=== PATIENT | female | born 1970 | race Caucasian/White ===

== ENCOUNTER 2016-11-29 16:25 | Inpatient (IN) | payer OTHER ==
[~2016-11-29] VITALS: Ht 170.2 cm; Wt 81.2 kg
[2016-11-29] VITALS (10 sets, daily range): BP systolic 110–155
[~2016-11-29 16:25] MED LIST: MONT10TA22 PO; PRO20 PO; PROAIR
[2016-11-29] MEDS ORDERED: NACL 0.9% 1,000 ML IV ONE ×2 (16:30→18:15)
[2016-11-29] MEDS ORDERED: DIAZEPAM 10 MG/2 ML DISP.SYRIN IVP ONE (16:30)
[2016-11-29] MEDS ORDERED: LORazepam 2 MG/ML VIAL (FOR ER USE) IVP ONE ×2 (16:30→17:30)
[2016-11-29] MEDS ORDERED: DIAZEPAM 10 MG/2 ML DISP.SYRIN ONE (16:39)
[2016-11-29 16:44] LABS: BASOPHILS # (AUTO) 0.1 K/uL (0.0-0.2); BASOPHILS % (AUTO) 0.7 % (0.0-2.0); EOSINOPHILS # (AUTO) 0.3 K/uL (0.0-0.4); HEMATOCRIT 38.6 % (44-61); HEMOGLOBIN 13.2 g/dL (13.0-20.0); LYMPHOCYTES # (AUTO) 1.8 K/uL (1.0-5.5); LYMPHOCYTES % (AUTO) 23.4 % (15.5-46.5); MEAN CORPUSCULAR HEMOGLOBIN 31 pg (27-31); MEAN CORPUSCULAR HGB CONC 34 % (32-36); MEAN CORPUSCULAR VOLUME 90 fL (106-124); MONOCYTES # (AUTO) 0.5 K/uL (0.0-1.0); MONOCYTES % (AUTO) 6.6 % (1.7-9.3); NEUTROPHILS % (AUTO) 65.3 % (40.0-70.0); PLATELET COUNT (AUTO) 276 K/uL (130-430); RED CELL DISTRIBUTION WIDTH 12.2 % (9.0-15.0); WHITE BLOOD COUNT (AUTO) 7.7 K/uL (9.0-30.0)
[2016-11-29 16:52] LABS: ANION GAP 6 (5-15); CALCIUM 8.5 mg/dL (8.4-11.0); CHLORIDE 105 mmol/L (98-107); CREATININE 0.95 mg/dL (0.55-1.30); GLUCOSE 108 mg/dL (70-105); POTASSIUM 3.5 mmol/L (3.5-5.1); SODIUM SERUM 137 mmol/L (136-145); UREA NITROGEN, BLOOD 12 mg/dL (8-21)
[2016-11-29 16:54] LABS: PROTHROMBIN TIME 10.7 SECS (9.5-12.5)
[2016-11-29 16:56] LABS: ALANINE AMINOTRANSFERASE 15 U/L (12-78); ALBUMIN 3.5 g/dL (2.8-4.4); ASPARTATE AMINOTRANSFERASE 17 U/L (10-37); TOTAL BILIRUBIN 0.5 mg/dL (0.0-1.0); TOTAL PROTEIN, SERUM 6.8 g/dL (6.4-8.3)
[2016-11-29 16:57] LABS: ALCOHOL, BLOOD < 3 mg/dL (<10)
[2016-11-29] MEDS ORDERED: PHENYTOIN SODIUM INJ 1,000 MG in NS 100 ML IV ONE (17:00)
[2016-11-29] MEDS ORDERED: PHENYTOIN SODIUM 250 MG/5 ML INJ. VIAL IV ONE (17:04)
[2016-11-29 17:15] LABS: SALICYLATE 1 mg/dL (3-30)
[2016-11-29] MEDS ORDERED: PROPOFOL DRIP 100 ML IV ONE (17:15)
[2016-11-29 17:20] LABS: ACETAMINOPHEN 2 ug/mL (1-30)
[2016-11-29] MEDS ORDERED: LORazepam 2 MG/ML VIAL (FOR ER USE) ONE (17:27)
[2016-11-29 18:24] LABS: BILIRUBIN,URINE NEGATIVE (NEGATIVE); BLOOD, URINE NEGATIVE (NEGATIVE); CLARITY/URINE CLEAR (CLEAR); COLOR,URINE YELLOW (YELLOW); GLUCOSE,URINE NEGATIVE (NEGATIVE); KETONES,URINE NEGATIVE (NEGATIVE); LEUKOCYTE ESTERASE ,URINE NEGATIVE (NEGATIVE); NITRITE, URINE NEGATIVE (NEGATIVE); PH,URINE 5.5 (5.0-8.0); PROTEIN URINE NEGATIVE (NEGATIVE); UROBILINOGEN,URINE 0.2 (0.2-1.0)
[2016-11-29 18:35] LABS: BARBITURATE, URINE NEGATIVE (NEG <=200); BENZODIAZEPINE, URINE POSITIVE (NEG <=150); CANNABINOID, URINE NEGATIVE (NEG <=50); COCAINE, URINE NEGATIVE (NEG <=150); METHAMPHETAMINES SCREEN,URINE NEGATIVE (NEG <=500); OPIATE, URINE NEGATIVE (NEG <=100); PHENCYCLIDINE SCREEN,URINE NEGATIVE (NEG <=25); UR TRICYCLIC ANTIDEPRESSANTS NEGATIVE (NEG <=300); URINE AMPHETAMINE NEGATIVE (NEG <=500); URINE METHADONE NEGATIVE (NEG <=200); URINE OXYCODONE SCREEN NEGATIVE (NEG <=100); URINE PROPOXYPHENE SCREEN NEGATIVE (NEG <=300)
[2016-11-29] MEDS ORDERED: ETOMIDATE 20 MG/ 10 ML VIAL (AMIDATE) IVP ONE (19:27)
[2016-11-29] MEDS ORDERED: VECURONIUM BROMIDE 10 MG/VIAL (NORCURON) IV ONE (19:27)
[2016-11-29 19:39] LABS: ABG TOTAL HEMOGLOBIN 14.3 G/dL (12.0-18.0); BLOOD GAS BASE EXCESS -3.5 mmol/L (-3.0-3.0); BLOOD GAS PH 7.319 (7.350-7.450); BLOOD O2Hb% 99.4 % (94.0-97.0)
[2016-11-29 19:40] LABS: BLOOD GAS HHB 0.6 % (0.0-6.0)
[2016-11-29 20:41] LABS: PHENYTOIN (DILANTIN) 10.6 ug/mL (10.0-20.0)
[2016-11-29] MEDS: LORazepam 2 MG/ML VIAL IVP PRN (21:58)
[2016-11-29 22:56] LABS: PHENOBARBITAL 1.1 ug/mL (15.0-40.0)
[2016-11-30] VITALS (24 sets, daily range): BP systolic 100–160
[2016-11-30 08:13] LABS: BLOOD GAS PH 7.418 (7.350-7.450)
[2016-11-30 08:14] LABS: ABG TOTAL HEMOGLOBIN 14.4 G/dL (12.0-18.0); BLOOD GAS BASE EXCESS -1.8 mmol/L (-3.0-3.0); BLOOD GAS COHb% 0.3 % (0.5-1.5); BLOOD GAS HHB 3.2 % (0.0-6.0)
[2016-11-30] MEDS: NACL 0.9% 1,000 ML IV SCH ×2 (09:45→22:44)
[2016-11-30] MEDS ORDERED: ACYC400T PO (09:49)
[2016-11-30] MEDS ORDERED: FLUO40CA49 PO (09:49)
[2016-11-30] MEDS ORDERED: MONT10TA22 PO (09:49)
[2016-11-30] MEDS ORDERED: PERC10 GT (09:49)
[2016-11-30] MEDS ORDERED: HYDR-1189 PO (09:49)
[2016-11-30] MEDS ORDERED: DOCUSATE SODIUM 100 MG CAPSULE PO SCH (16:30)
[2016-11-30] MEDS ORDERED: IPRATROPIUM/ALBUTEROL SULFATE 3 ML AMPUL.NEB INH PRN (16:45)
[2016-11-30] MEDS: FIORCET PO PRN (17:59)
[2016-11-30] MEDS: IPRATROPIUM/ALBUTEROL SULFATE 3 ML AMPUL.NEB INH SCH (19:03)
[2016-11-30] MEDS ORDERED: MORPHINE 2 MG/ML INJ. SYRINGE IVP PRN (20:15)
[2016-11-30] MEDS: DOCUSATE SODIUM 100 MG CAPSULE PO SCH (20:30)
[2016-11-30] MEDS: PHENobarbital 30 MG TABLET PO SCH (20:30)
[2016-11-30] MEDS: PHENYTOIN 100 MG CAPSULE PO SCH (20:31)
[2016-11-30] MEDS: HYDROcodone/ACETAMIN 10-325 MG TAB PO PRN (20:32)
[2016-12-01] VITALS (21 sets, daily range): BP systolic 110–155
[2016-12-01] MEDS: FIORCET PO PRN ×2 (05:55→15:12)
[2016-12-01] MEDS: IPRATROPIUM/ALBUTEROL SULFATE 3 ML AMPUL.NEB INH SCH ×3 (06:16→12:00)
[2016-12-01] MEDS: LORazepam 2 MG/ML VIAL IVP PRN (06:50)
[2016-12-01] MEDS ORDERED: PANTOPRAZOLE SODIUM 40 MG/VIAL (PROTONIX) IVP SCH (09:00)
[2016-12-01] MEDS ORDERED: MONTELUKAST 10 MG TABLET PO SCH (09:00)
[2016-12-01] MEDS: DOCUSATE SODIUM 100 MG CAPSULE PO SCH (09:48)
[2016-12-01] MEDS: PHENYTOIN 100 MG CAPSULE PO SCH (09:48)
[2016-12-01] MEDS: PHENobarbital 30 MG TABLET PO SCH (09:48)
[2016-12-01] MEDS: NACL 0.9% 1,000 ML IV SCH (10:01)
[2016-12-01 12:56] LABS: PHENYTOIN (DILANTIN) 4.6 ug/mL (10.0-20.0)
[2016-12-01 16:00] LABS: PHENOBARBITAL 2.9 ug/mL (15.0-40.0)
[2016-12-01] MEDS: HYDROcodone/ACETAMIN 10-325 MG TAB PO PRN (18:27)
== END 2016-12-01 20:25 | disposition short-term general hospital (02) | DRG 53 ==
LOC: SED 16:25 → SIC 18:11 → MERGE 18:11 → EDBD 18:11 → SIC 18:56
PROVIDERS: ADMIT Family Medicine; ATTEND Family Medicine
PROC: 5A1935Z Respiratory Ventilation, Less than 24 Consecutive Hours (ICD-10-PCS; principal; 2016-11-29)
PROC: 0BH17EZ Insertion of Endotracheal Airway into Trachea, Via Natural or Artificial Opening (ICD-10-PCS; 2016-11-29)
DX: G40.401 Other generalized epilepsy and epileptic syndromes, not intractable, with status epilepticus (principal); J96.00 Acute respiratory failure, unspecified whether with hypoxia or hypercapnia; G93.41 Metabolic encephalopathy; F32.9 Major depressive disorder, single episode, unspecified; Z79.899 Other long term (current) drug therapy
CPT/HCPCS: 36415; 36600; 70450-TC; 71010; 80053; 80184-TC; 80185-TC; 80307; 81003; 82803-TC; 84484; 84703; 85025; 85610-TC; 85730-TC; 87081; 94002; 94640; 95816; C9113; G0480; G0481; G0482; J1165; J2060; J2704; J3360; J3490; J7030; J7050

== ENCOUNTER 2017-11-09 20:30 | Emergency (ER) | payer OTHER ==
[~2017-11-09] VITALS: Ht 167.6 cm; Wt 77.1 kg
[~2017-11-09 20:30] MED LIST changes: +ACYC400T PO; +FLUO40CA49 PO; +FLUO40CA8 PO; +HYDR-1189 PO; +PERC10 GT; +VENL37.510 PO
[2017-11-09 20:34] VITALS: BP_SYST 139
[2017-11-09] MEDS ORDERED: NACL 0.9% 1,000 ML IV ONE (20:45)
[2017-11-09] MEDS ORDERED: ONDANSETRON HCL 4 MG/2 ML VIAL IVP ONE (20:45)
[2017-11-09] MEDS ORDERED: LORazepam 2 MG/ML VIAL (FOR ER USE) IVP ONE ×2 (20:45→21:45)
[2017-11-09] MEDS ORDERED: ONDA4TAB22 PO (20:47)
[2017-11-09] MEDS ORDERED: VENL37.510 PO (20:47)
[2017-11-09] MEDS ORDERED: CLON0.5T4 PO (20:47)
[2017-11-09] MEDS ORDERED: PRO20 PO (20:47)
[2017-11-09] MEDS ORDERED: ACYC400T PO (20:47)
[2017-11-09] MEDS ORDERED: VENL75CA PO (20:47)
[2017-11-09] MEDS ORDERED: MONT10TA25 PO (20:47)
[2017-11-09 21:10] LABS: BILIRUBIN,URINE NEGATIVE (NEGATIVE); BLOOD, URINE NEGATIVE (NEGATIVE); CLARITY/URINE CLEAR (CLEAR); COLOR,URINE YELLOW (YELLOW); GLUCOSE,URINE NEGATIVE (NEGATIVE); KETONES,URINE NEGATIVE (NEGATIVE); LEUKOCYTE ESTERASE ,URINE NEGATIVE (NEGATIVE); NITRITE, URINE NEGATIVE (NEGATIVE); PROTEIN URINE NEGATIVE (NEGATIVE); UROBILINOGEN,URINE 0.2 (0.2-1.0)
[2017-11-09 21:30] LABS: BARBITURATE, URINE NEGATIVE (NEG <=200); BENZODIAZEPINE, URINE NEGATIVE (NEG <=150); CANNABINOID, URINE NEGATIVE (NEG <=50); COCAINE, URINE NEGATIVE (NEG <=150); METHAMPHETAMINES SCREEN,URINE NEGATIVE (NEG <=500); OPIATE, URINE NEGATIVE (NEG <=100); PHENCYCLIDINE SCREEN,URINE NEGATIVE (NEG <=25); UR TRICYCLIC ANTIDEPRESSANTS NEGATIVE (NEG <=300); URINE AMPHETAMINE NEGATIVE (NEG <=500); URINE METHADONE NEGATIVE (NEG <=200); URINE OXYCODONE SCREEN NEGATIVE (NEG <=100); URINE PROPOXYPHENE SCREEN NEGATIVE (NEG <=300)
[2017-11-09 21:57] LABS: BASOPHILS # (AUTO) 0.1 K/uL (0.0-0.2); BASOPHILS % (AUTO) 1.3 % (0.0-2.0); EOSINOPHILS # (AUTO) 0.2 K/uL (0.0-0.4); EOSINOPHILS % (AUTO) 2.8 % (0.0-4.0); HEMATOCRIT 36.5 % (36-48); HEMOGLOBIN 12.2 g/dL (12.0-16.0); LYMPHOCYTES # (AUTO) 1.1 K/uL (1.0-5.5); MEAN CORPUSCULAR HEMOGLOBIN 30 pg (27-31); MEAN CORPUSCULAR HGB CONC 33 % (32-36); MEAN CORPUSCULAR VOLUME 90 fL (79.0-98.0); MONOCYTES # (AUTO) 0.5 K/uL (0.0-1.0); MONOCYTES % (AUTO) 6.2 % (1.7-9.3); NEUTROPHILS # (AUTO) 5.5 K/uL (1.8-7.7); NEUTROPHILS % (AUTO) 74.7 % (40.0-70.0); PLATELET COUNT (AUTO) 348 K/uL (130-430); RED BLOOD CELL COUNT(AUTO) 4.07 MIL/uL (4.2-6.2); RED CELL DISTRIBUTION WIDTH 12.9 % (9.0-15.0); WHITE BLOOD COUNT (AUTO) 7.4 K/uL (4.8-10.8)
[2017-11-09 22:09] LABS: ANION GAP 11 (5-15); CHLORIDE 106 mmol/L (98-107); GLUCOSE 89 mg/dL (70-99); POTASSIUM 3.6 mmol/L (3.5-5.1); SODIUM SERUM 142 mmol/L (136-145); UREA NITROGEN, BLOOD 10 mg/dL (8-21)
[2017-11-09 22:18] LABS: ALANINE AMINOTRANSFERASE 20 U/L (12-78); ALBUMIN 3.6 g/dL (3.4-4.8); ASPARTATE AMINOTRANSFERASE 16 U/L (10-37)
[2017-11-09 22:24] LABS: GFR AFRICAN AMERICAN 99 mL/min (>90)
[2017-11-09 22:32] LABS: TOTAL BILIRUBIN 0.1 mg/dL (0.0-1.0)
== END 2017-11-10 00:30 | disposition short-term general hospital (02) ==
LOC: SED 20:30 → MERGE 20:30 → SED 11-10 00:30
DX: G40.901 Epilepsy, unspecified, not intractable, with status epilepticus (principal); Z88.1 Allergy status to other antibiotic agents; Z79.899 Other long term (current) drug therapy
CPT/HCPCS: 36415; 51702; 70450; 71045; 80053; 80307; 81003; 81025; 84484; 85025; 93005; 96361; 96374; 96375; 96376; 99285; J2060; J2405; J7030